=== PATIENT | female | born 1940 | race Two or more races ===

== ENCOUNTER → 2022-10-30 | Outpatient (CLI) | payer OTHER ==
[2022-10-30 07:47] LABS: Basophils # (auto) 0.1 10 ^3/uL (0-0.2); Basophils % (auto) 0.9 % (0.0-2.0); Eosinophils # (auto) 0.3 10 ^3/uL (0-0.8); Eosinophils % (auto) 3.9 % (0.0-7.0); Hemoglobin 13.6 g/dL (12.2-16.2); Lymphocytes # (auto) 1.6 10 ^3/uL (0.4-5.4); Lymphocytes % (auto) 21.9 % (10.0-50.0); Mean Corpuscular Hemoglobin 31.7 pg (28.0-32.0); Mean Corpuscular Hgb Conc. 34.8 g/dL (32.0-36.0); Mean Corpuscular Volume 91.1 fL (80.0-100.0); Monocytes # (auto) 0.5 10 ^3/uL (0-1.3); Monocytes % (auto) 6.7 % (0.0-12.0); Neutrophils # (auto) 4.9 10 ^3/uL (1.6-8.6); Neutrophils % (auto) 66.6 % (37.0-80.0); Nucleated Red Blood Cells % 0.3 %; Red Blood Cells 4.28 10^6/uL (4.0-5.20); Red Cell Distribution Width 12.7 % (11.8-14.3); White Blood Cell 7.4 10^3/uL (4.4-10.8)
[2022-10-30 08:36] LABS: Calcium 9.4 mg/dL (8.5-10.1); Potassium 3.5 mmol/L (3.5-5.1)
[2022-10-30 08:43] LABS: Albumin 3.9 g/dL (3.4-5.0); BUN/Creatinine Ratio 17.3 (10.0-20.0); Bilirubin, Total 0.8 mg/dL (0.2-1.0); Total Protein 7.4 g/dL (6.4-8.2)
[2022-10-30 08:44] LABS: Free T3 3.31 pg/mL (2.3-4.2); Free T4 (Free Thyroxine) 1.2 ng/dL (0.89-1.76)
== END | disposition home or self-care (01) ==
LOC: LAB 07:31
PROVIDERS: ATTEND Internal Medicine
DX: E11.69 Type 2 diabetes mellitus with other specified complication (principal); E04.2 Nontoxic multinodular goiter; E55.9 Vitamin D deficiency, unspecified
CPT/HCPCS: 36415; 80053; 82306; 82465; 83036; 83718; 83721; 84439; 84443; 84478; 84481; 85025

== ENCOUNTER → 2023-02-07 | Outpatient (CLI) | payer OTHER ==
[2023-02-07 08:01] LABS: Basophils # (auto) 0 10 ^3/uL (0-0.2); Basophils % (auto) 0.5 % (0.0-2.0); Eosinophils # (auto) 0.2 10 ^3/uL (0-0.8); Eosinophils % (auto) 2.1 % (0.0-7.0); Hematocrit 36.4 % (36.0-46.0); Hemoglobin 12.7 g/dL (12.2-16.2); Lymphocytes # (auto) 1.9 10 ^3/uL (0.4-5.4); Lymphocytes % (auto) 25.3 % (10.0-50.0); Mean Corpuscular Hemoglobin 31.7 pg (28.0-32.0); Mean Corpuscular Hgb Conc. 34.7 g/dL (32.0-36.0); Mean Corpuscular Volume 91.3 fL (80.0-100.0); Monocytes # (auto) 0.6 10 ^3/uL (0-1.3); Monocytes % (auto) 8.1 % (0.0-12.0); Neutrophils # (auto) 4.9 10 ^3/uL (1.6-8.6); Nucleated Red Blood Cells % 0.1 %; Red Blood Cells 3.99 10^6/uL (4.0-5.20); Red Cell Distribution Width 12.6 % (11.8-14.3); White Blood Cell 7.6 10^3/uL (4.4-10.8)
[2023-02-07 09:01] LABS: Albumin 3.5 g/dL (3.4-5.0); Calcium 8.3 mg/dL (8.5-10.1); Potassium 3.6 mmol/L (3.5-5.1)
[2023-02-07 09:06] LABS: BUN/Creatinine Ratio 10.8 (10.0-20.0); Bilirubin, Total 0.5 mg/dL (0.2-1.0); Total Protein 6.6 g/dL (6.4-8.2)
== END | disposition home or self-care (01) ==
LOC: LAB 07:43
PROVIDERS: ATTEND Internal Medicine
DX: B35.1 Tinea unguium (principal)
CPT/HCPCS: 36415; 80053; 85025

== ENCOUNTER 2023-03-03 10:14 | Inpatient (IN) | payer OTHER ==
[~2023-03-03] VITALS: Ht 154.9 cm; Wt 62.2 kg
[2023-03-03 11:22] LABS: Basophils # (auto) 0.1 10 ^3/uL (0-0.2); Basophils % (auto) 0.6 % (0.0-2.0); Eosinophils # (auto) 0 10 ^3/uL (0-0.8); Hemoglobin 13.2 g/dL (12.2-16.2); Lymphocytes # (auto) 1.1 10 ^3/uL (0.4-5.4); Lymphocytes % (auto) 10.4 % (10.0-50.0); Mean Corpuscular Hgb Conc. 34.8 g/dL (32.0-36.0); Mean Corpuscular Volume 91.8 fL (80.0-100.0); Monocytes # (auto) 0.4 10 ^3/uL (0-1.3); Monocytes % (auto) 3.9 % (0.0-12.0); Neutrophils # (auto) 9.3 10 ^3/uL (1.6-8.6); Neutrophils % (auto) 85.1 % (37.0-80.0); Red Blood Cells 4.13 10^6/uL (4.0-5.20); Red Cell Distribution Width 13.1 % (11.8-14.3); White Blood Cell 10.9 10^3/uL (4.4-10.8)
[2023-03-03 11:34] LABS: Alanine Aminotransferase 29 U/L (7-40); Albumin 4.3 g/dL (3.2-4.8); Alkaline Phosphatase 46 U/L (46-116); Aspartate Aminotransferase 28 U/L (13-40); BUN/Creatinine Ratio 13.4 (10.0-20.0); Blood Urea Nitrogen 45 mg/dL (9-23); Calcium 9.2 mg/dL (8.5-10.1); Chloride 99 mmol/L (98-107); Glucose 196 mg/dL (74-106); Potassium 3.1 mmol/L (3.5-5.1); Sodium 135 mmol/L (136-145)
[2023-03-03 11:35] LABS: Bilirubin, Total 0.6 mg/dL (0.2-1.0); Total Protein 6.8 g/dL (5.7-8.2)
[2023-03-03] MEDS ORDERED: SODIUM CHLORIDE 0.9% 1,000 ML IV ONE (12:00)
[2023-03-03] MEDS ORDERED: KETOROLAC TROMETH 30 MG/ML 1ML VIAL IV ONE (12:00)
[2023-03-03] MEDS ORDERED: METOCLOPRAMIDE HCL 5MG/ml INJ 2ml VIAL IV ONE (12:00)
[2023-03-03 12:20] LABS: Magnesium 2.2 mg/dL (1.6-2.6)
[2023-03-03] MEDS ORDERED: POTASSIUM EFFERVESENT TAB 25 MEQ PO ONE (15:00)
[2023-03-03] MEDS ORDERED: HYDROcodone-ACET 5/325MG TAB PO PRN (16:15)
[2023-03-03] MEDS ORDERED: DOCUSATE SOD 100 MG CAP PO PRN (16:15)
[2023-03-03] MEDS ORDERED: ONDANSETRON HCL 4 MG/2 ML VIAL IV PRN (16:15)
[2023-03-03] MEDS ORDERED: ACETAMINOPHEN 325 MG TAB PO PRN (16:15)
[2023-03-03] MEDS: SODIUM CHLORIDE 0.9% 1,000 ML IV SCH (16:25)
[2023-03-03 17:30] VITALS: PULSE 80; RESP 20; O2SAT 100
[2023-03-03] MEDS ORDERED: LISINOPRIL 10 MG TAB PO ONE (17:45)
[2023-03-03 18:35] LABS: Chloride 100 mmol/L (98-107); Potassium 3.7 mmol/L (3.5-5.1); Sodium 135 mmol/L (136-145)
[2023-03-03 18:36] LABS: Anion Gap 11.5 (5-15); Carbon Dioxide 23.5 mmol/L (20-30)
[2023-03-03 18:37] LABS: Calcium 8.9 mg/dL (8.5-10.1)
[2023-03-03 18:41] LABS: Glucose 139 mg/dL (74-106)
[2023-03-03 18:42] LABS: BUN/Creatinine Ratio 14.4 (10.0-20.0); Blood Urea Nitrogen 46 mg/dL (9-23); Magnesium 2.3 mg/dL (1.6-2.6)
[2023-03-03 19:35] VITALS: PULSE 66; RESP 17; O2SAT 97
[2023-03-03] MEDS ORDERED: hydrALAZINE HCL 20 MG/ML VL IV PRN (21:15)
[2023-03-03 22:00] VITALS: BP 154/69; PULSE 74; RESP 17; TEMP 98; O2SAT 96
[2023-03-03 23:22] VITALS: PULSE 69; RESP 18; O2SAT 98
[2023-03-04] VITALS (7 sets, daily range): BP systolic 138–166; BP diastolic 69–82; PULSE 72–80; RESP 17–19; TEMP 98–99.3; O2SAT 97–99
[2023-03-04 04:34] LABS: Urine Bacteria FEW /hpf (None Seen); Urine Blood Negative /uL (Negative); Urine Clarity Clear (Clear); Urine Color Yellow (Yellow); Urine Mucus FEW (None Seen); Urine Protein, UAD Negative (Negative); Urine Specific Gravity 1.014 (1.001-1.035); Urine Urobilinogen Normal (Negative); Urine WBC 6 /hpf (0 - 5); Urine pH 5.5 (5.0-8.0)
[2023-03-04] MEDS: SODIUM CHLORIDE 0.9% 1,000 ML IV SCH ×3 (06:01→17:18)
[2023-03-04 06:06] LABS: Basophils # (auto) 0.1 10 ^3/uL (0-0.2); Basophils % (auto) 1.1 % (0.0-2.0); Eosinophils # (auto) 0.1 10 ^3/uL (0-0.8); Eosinophils % (auto) 1.1 % (0.0-7.0); Hematocrit 34.2 % (36.0-46.0); Hemoglobin 11.9 g/dL (12.2-16.2); Lymphocytes # (auto) 1.5 10 ^3/uL (0.4-5.4); Lymphocytes % (auto) 15.3 % (10.0-50.0); Mean Corpuscular Hemoglobin 31.6 pg (28.0-32.0); Mean Corpuscular Hgb Conc. 34.7 g/dL (32.0-36.0); Mean Corpuscular Volume 90.9 fL (80.0-100.0); Monocytes # (auto) 0.7 10 ^3/uL (0-1.3); Neutrophils # (auto) 7.2 10 ^3/uL (1.6-8.6); Neutrophils % (auto) 75.5 % (37.0-80.0); Red Blood Cells 3.76 10^6/uL (4.0-5.20); Red Cell Distribution Width 13.4 % (11.8-14.3); White Blood Cell 9.5 10^3/uL (4.4-10.8)
[2023-03-04 06:23] LABS: Alanine Aminotransferase 25 U/L (7-40); Alkaline Phosphatase 40 U/L (46-116); BUN/Creatinine Ratio 13.7 (10.0-20.0); Blood Urea Nitrogen 43 mg/dL (9-23); Calcium 8.6 mg/dL (8.5-10.1); Chloride 104 mmol/L (98-107); Glucose 110 mg/dL (74-106); Potassium 3.5 mmol/L (3.5-5.1); Sodium 138 mmol/L (136-145)
[2023-03-04 06:25] LABS: Albumin 3.8 g/dL (3.2-4.8); Anion Gap 10.4 (5-15); Aspartate Aminotransferase 33 U/L (13-40); Bilirubin, Total 0.6 mg/dL (0.2-1.0); Carbon Dioxide 23.6 mmol/L (20-30); Total Protein 6.2 g/dL (5.7-8.2)
[2023-03-04] MEDS ORDERED: SODIUM CHLORIDE 0.9% 500 ML IV ONE (09:45)
[2023-03-04] MEDS ORDERED: PANTOPRAZOLE 40 MG/10 ML VIAL INJ IV ONE (10:15)
[2023-03-04] MEDS: hydrALAZINE HCL 20 MG/ML VL IV PRN ×2 (10:34→17:24)
[2023-03-04 11:47] LABS: INR 1.13 (0.9-1.15); Prothrombin Time 11.8 sec (9.3-11.8)
[2023-03-04] MEDS ORDERED: MORPHINE SULFATE INJ 2 MG/ml SYRG IV PRN (18:00)
[2023-03-04] MEDS: PANTOPRAZOLE 40 MG/10 ML VIAL INJ IV SCH (21:57)
[2023-03-05] VITALS (10 sets, daily range): BP systolic 133–179; BP diastolic 63–81; PULSE 69–98; RESP 16–18; TEMP 97.5–98.8; O2SAT 96–99
[2023-03-05] MEDS: hydrALAZINE HCL 20 MG/ML VL IV PRN ×2 (03:53→12:22)
[2023-03-05] MEDS: SODIUM CHLORIDE 0.9% 1,000 ML IV SCH ×4 (04:53→23:31)
[2023-03-05 06:54] LABS: Anion Gap 11.2 (5-15); Carbon Dioxide 19.8 mmol/L (20-30); Chloride 110 mmol/L (98-107); Potassium 3.2 mmol/L (3.5-5.1); Sodium 141 mmol/L (136-145)
[2023-03-05 06:55] LABS: Calcium 7.8 mg/dL (8.7-10.4)
[2023-03-05 07:00] LABS: BUN/Creatinine Ratio 13.6 (10.0-20.0); Glucose 105 mg/dL (74-106)
[2023-03-05 07:01] LABS: Magnesium 1.8 mg/dL (1.6-2.6)
[2023-03-05 07:10] LABS: Blood Urea Nitrogen 30 mg/dL (9-23)
[2023-03-05 07:21] LABS: Basophils # (auto) 0.1 10 ^3/uL (0-0.2); Eosinophils # (auto) 0.1 10 ^3/uL (0-0.8); Eosinophils % (auto) 0.8 % (0.0-7.0); Hematocrit 34.1 % (36.0-46.0); Hemoglobin 11.7 g/dL (12.2-16.2); Lymphocytes # (auto) 1.2 10 ^3/uL (0.4-5.4); Lymphocytes % (auto) 11.3 % (10.0-50.0); Mean Corpuscular Hemoglobin 31.6 pg (28.0-32.0); Mean Corpuscular Hgb Conc. 34.3 g/dL (32.0-36.0); Mean Corpuscular Volume 92.1 fL (80.0-100.0); Monocytes # (auto) 0.6 10 ^3/uL (0-1.3); Monocytes % (auto) 5.8 % (0.0-12.0); Neutrophils # (auto) 8.7 10 ^3/uL (1.6-8.6); Neutrophils % (auto) 81.1 % (37.0-80.0); Red Cell Distribution Width 13.4 % (11.8-14.3); White Blood Cell 10.8 10^3/uL (4.4-10.8)
[2023-03-05] MEDS: PANTOPRAZOLE 40 MG/10 ML VIAL INJ IV SCH ×2 (09:12→21:09)
[2023-03-05] MEDS ORDERED: SODIUM CHLORIDE LOCK 10 ML ONE (10:24)
[2023-03-05] MEDS ORDERED: diphenhdrAMINE HCL 50 MG/1 ML VL ONE (10:24)
[2023-03-05] MEDS ORDERED: MIDAZOLAM HCL 2MG/2ML 2ml VIAL (1mg/ml) ONE (10:24)
[2023-03-05] MEDS ORDERED: FLUMAZENIL 0.1 MG/ML INJ 10ML MDV IV ONE (10:24)
[2023-03-05] MEDS ORDERED: LIDOCAINE VISCOUS 2% 15ML UD ONE (10:24)
[2023-03-05] MEDS ORDERED: NALOXONE HCL 0.4 MG/ML VIAL ONE (10:25)
[2023-03-05] MEDS ORDERED: MIDAZOLAM HCL 5 MG/ML-1ML VIAL ONE (10:28)
[2023-03-05] MEDS: fentaNYL CITRATE 100 MCG/2 ML VL ONE ×2 (10:47→10:50)
[2023-03-05] MEDS: POTASSIUM CHL 20MEQ/100ML 100 ML IV SCH ×3 (12:30→16:57)
[2023-03-05] MEDS: SUCRALFATE 1 GM/10 ML ORAL SUSP PO SCH ×2 (17:22→21:09)
[2023-03-06] VITALS (9 sets, daily range): BP systolic 153–184; BP diastolic 68–88; PULSE 73–103; RESP 15–17; TEMP 98.1–98.6; O2SAT 96–97
[2023-03-06] MEDS: hydrALAZINE HCL 20 MG/ML VL IV PRN ×2 (04:11→17:09)
[2023-03-06] MEDS: SUCRALFATE 1 GM/10 ML ORAL SUSP PO SCH ×4 (06:22→21:27)
[2023-03-06] MEDS: SODIUM CHLORIDE 0.9% 1,000 ML IV SCH (06:22)
[2023-03-06] MEDS ORDERED: LOSA50TA46 PO (06:57)
[2023-03-06 07:02] LABS: Calcium 7.9 mg/dL (8.5-10.1); Chloride 112 mmol/L (98-107); Potassium 4.4 mmol/L (3.5-5.1); Sodium 141 mmol/L (136-145)
[2023-03-06 07:08] LABS: BUN/Creatinine Ratio 10.5 (10.0-20.0); Blood Urea Nitrogen 22 mg/dL (9-23); Glucose 120 mg/dL (74-106)
[2023-03-06] MEDS: PANTOPRAZOLE 40 MG/10 ML VIAL INJ IV SCH ×2 (09:39→21:27)
[2023-03-06] MEDS ORDERED: amLODIPine BESYLATE 5 MG TAB PO SCH (10:00)
[2023-03-06] MEDS: SODIUM BICARBONATE 50ML VIAL 50 ML in SOD CHL 0.45% 1,000 ML IV SCH ×2 (15:33→21:27)
[2023-03-07] MEDS: SODIUM BICARBONATE 50ML VIAL 50 ML in SOD CHL 0.45% 1,000 ML IV SCH (04:10)
[2023-03-07 04:16] VITALS: BP 175/74; PULSE 79; RESP 16; TEMP 98.3; O2SAT 98
[2023-03-07] MEDS: hydrALAZINE HCL 20 MG/ML VL IV PRN (05:29)
[2023-03-07] MEDS: SUCRALFATE 1 GM/10 ML ORAL SUSP PO SCH ×2 (06:10→11:21)
[2023-03-07 06:39] VITALS: BP 165/62
[2023-03-07 08:00] VITALS: BP 162/72; PULSE 81; PULSE 85; RESP 17; TEMP 98.5; O2SAT 96
[2023-03-07 08:43] LABS: Protein, Urine 6.2 mg/dL (0.0-11.9)
[2023-03-07 08:45] LABS: Creatinine, Urine 29.27 mg/dL (30.0-125.0); Urine Protein/Creatinine Ratio 0.21
[2023-03-07] MEDS ORDERED: PANT40TA2 PO (09:19)
[2023-03-07] MEDS: PANTOPRAZOLE 40 MG/10 ML VIAL INJ IV SCH (09:55)
[2023-03-07] MEDS ORDERED: amLODIPine BESYLATE 5 MG TAB PO SCH (10:00)
[2023-03-07] MEDS ORDERED: METOPROLOL SUCCINATE XL 50 MG TAB PO SCH (10:00)
[2023-03-07 11:10] LABS: Anion Gap 6.9 (5-15); Carbon Dioxide 23.1 mmol/L (20-30); Chloride 107 mmol/L (98-107); Potassium 3.4 mmol/L (3.5-5.1); Sodium 137 mmol/L (136-145)
[2023-03-07 11:11] LABS: Calcium 7.8 mg/dL (8.5-10.1)
[2023-03-07 11:16] LABS: BUN/Creatinine Ratio 12.3 (10.0-20.0); Blood Urea Nitrogen 17 mg/dL (9-23); Glucose 204 mg/dL (74-106)
[2023-03-07] MEDS ORDERED: SUCR1TAB22 OR (11:37)
[2023-03-07] MEDS ORDERED: AMLO1TAB23 PO (11:37)
[2023-03-07] MEDS ORDERED: METO25TA36 PO ×2 (11:37)
[2023-03-07] MEDS ORDERED: METO-6 PO (11:41)
[2023-03-07] MEDS ORDERED: POTASSIUM CHL 20 Meq TABLET PO ONE (11:45)
[2023-03-07 12:24] VITALS: BP 147/65; PULSE 81; RESP 17; TEMP 98.5
== END 2023-03-07 13:31 | disposition home or self-care (01) | DRG 381 ==
LOC: ER 10:14 → TELE 16:13 → TELE-CENTR 22:50
PROVIDERS: ADMIT Internal Medicine Geriatric Medicine; ATTEND Internal Medicine Geriatric Medicine
PROC: 0DB98ZX Excision of Duodenum, Via Natural or Artificial Opening Endoscopic, Diagnostic (ICD-10-PCS; 2023-03-05)
PROC: 0DB68ZX Excision of Stomach, Via Natural or Artificial Opening Endoscopic, Diagnostic (ICD-10-PCS; 2023-03-05)
PROC: 0DB58ZX Excision of Esophagus, Via Natural or Artificial Opening Endoscopic, Diagnostic (ICD-10-PCS; principal; 2023-03-05 10:41)
DX: K22.10 Ulcer of esophagus without bleeding (principal); E87.1 Hypo-osmolality and hyponatremia; N17.9 Acute kidney failure, unspecified; N39.0 Urinary tract infection, site not specified; E87.20 Acidosis, unspecified; N18.4 Chronic kidney disease, stage 4 (severe); K26.9 Duodenal ulcer, unspecified as acute or chronic, without hemorrhage or perforation; I12.9 Hypertensive chronic kidney disease with stage 1 through stage 4 chronic kidney disease, or unspecified chronic kidney disease; K25.9 Gastric ulcer, unspecified as acute or chronic, without hemorrhage or perforation; K29.70 Gastritis, unspecified, without bleeding; K29.80 Duodenitis without bleeding; K44.9 Diaphragmatic hernia without obstruction or gangrene; K29.90 Gastroduodenitis, unspecified, without bleeding; E86.0 Dehydration; E87.6 Hypokalemia; E07.9 Disorder of thyroid, unspecified; I25.10 Atherosclerotic heart disease of native coronary artery without angina pectoris; K59.00 Constipation, unspecified
CPT/HCPCS: 36415; 71046; 71250; 74176; 76705; 80048; 80053; 81001; 82570; 83036; 83690; 83735; 84156; 84300; 84443; 84484; 85025; 85610; 85730; 93005; C9113; G0378; J1885; J2250; J3480

== ENCOUNTER → 2023-03-20 | Outpatient (CLI) | payer OTHER ==
[~2023-03-20] MED LIST: AMLO1TAB23 PO; METO-6 PO; PANT40TA2 PO; SUCR1TAB22 OR
[2023-03-20 08:14] LABS: Basophils # (auto) 0 10 ^3/uL (0-0.2); Basophils % (auto) 0.4 % (0.0-2.0); Eosinophils # (auto) 0.1 10 ^3/uL (0-0.8); Hematocrit 35.1 % (36.0-46.0); Hemoglobin 12.3 g/dL (12.2-16.2); Lymphocytes # (auto) 1.9 10 ^3/uL (0.4-5.4); Lymphocytes % (auto) 18.4 % (10.0-50.0); Mean Corpuscular Hemoglobin 31.3 pg (28.0-32.0); Mean Corpuscular Hgb Conc. 35.1 g/dL (32.0-36.0); Mean Corpuscular Volume 89.1 fL (80.0-100.0); Monocytes # (auto) 0.5 10 ^3/uL (0-1.3); Neutrophils # (auto) 7.6 10 ^3/uL (1.6-8.6); Neutrophils % (auto) 75.2 % (37.0-80.0); Nucleated Red Blood Cells % 0.2 %; Red Blood Cells 3.94 10^6/uL (4.0-5.20); Red Cell Distribution Width 12.9 % (11.8-14.3); White Blood Cell 10.1 10^3/uL (4.4-10.8)
[2023-03-20 08:21] LABS: Urine Bacteria FEW /hpf (None Seen); Urine Blood Negative /uL (Negative); Urine Clarity Clear (Clear); Urine Color Colorless (Yellow); Urine Protein, UAD Negative (Negative); Urine Specific Gravity 1.004 (1.001-1.035); Urine Urobilinogen Normal (Negative); Urine WBC 1 /hpf (0 - 5)
[2023-03-20 08:54] LABS: Alanine Aminotransferase 29 U/L (7-40); Albumin 4.1 g/dL (3.2-4.8); Alkaline Phosphatase 67 U/L (46-116); Aspartate Aminotransferase 42 U/L (13-40); BUN/Creatinine Ratio 6.2 (10.0-20.0); Bilirubin, Total 0.9 mg/dL (0.2-1.0); Blood Urea Nitrogen 6 mg/dL (9-23); Calcium 8.8 mg/dL (8.5-10.1); Carbon Dioxide 32 mmol/L (20-30); Glucose 170 mg/dL (74-106); Total Protein 6.9 g/dL (5.7-8.2)
[2023-03-20 08:55] LABS: % Iron Saturation 33.2 % (15-50)
[2023-03-20 09:07] LABS: Anion Gap 10 (5-15); Chloride 97 mmol/L (98-107); Sodium 139 mmol/L (136-145)
[2023-03-20 09:33] LABS: Potassium 2.2 mmol/L (3.5-5.1)
== END | disposition home or self-care (01) ==
LOC: LAB 07:45
PROVIDERS: ATTEND Internal Medicine
DX: N18.32 Chronic kidney disease, stage 3b (principal); N39.0 Urinary tract infection, site not specified; K29.90 Gastroduodenitis, unspecified, without bleeding
CPT/HCPCS: 36415; 80053; 81001; 82728; 83540; 83550; 85025; 87086

== ENCOUNTER 2023-03-21 13:48 | Inpatient (IN) | payer OTHER ==
[~2023-03-21] VITALS: Ht 152.4 cm; Wt 50.5 kg
[2023-03-21 14:17] LABS: Basophils # (auto) 0 10 ^3/uL (0-0.2); Basophils % (auto) 0.2 % (0.0-2.0); Eosinophils # (auto) 0.1 10 ^3/uL (0-0.8); Eosinophils % (auto) 0.6 % (0.0-7.0); Hematocrit 31.6 % (36.0-46.0); Hemoglobin 11.1 g/dL (12.2-16.2); Lymphocytes # (auto) 1.8 10 ^3/uL (0.4-5.4); Lymphocytes % (auto) 10.4 % (10.0-50.0); Mean Corpuscular Hemoglobin 30.8 pg (28.0-32.0); Mean Corpuscular Volume 87.9 fL (80.0-100.0); Monocytes % (auto) 5.8 % (0.0-12.0); Neutrophils # (auto) 14.2 10 ^3/uL (1.6-8.6); Red Cell Distribution Width 12.8 % (11.8-14.3); White Blood Cell 17.1 10^3/uL (4.4-10.8)
[2023-03-21 14:51] LABS: Alanine Aminotransferase 30 U/L (7-40); Albumin 4.3 g/dL (3.2-4.8); Alkaline Phosphatase 69 U/L (46-116); Anion Gap 6 (5-15); Aspartate Aminotransferase 38 U/L (13-40); Bilirubin, Total 0.7 mg/dL (0.2-1.0); Blood Urea Nitrogen 6 mg/dL (9-23); Calcium 8.7 mg/dL (8.7-10.4); Carbon Dioxide 33 mmol/L (20-30); Chloride 97 mmol/L (98-107); Glucose 149 mg/dL (74-106); Sodium 136 mmol/L (136-145); Total Protein 6.4 g/dL (5.7-8.2)
[2023-03-21 14:58] LABS: BUN/Creatinine Ratio 6.3 (10.0-20.0)
[2023-03-21 15:28] LABS: Urine Bacteria FEW /hpf (None Seen); Urine Blood Negative /uL (Negative); Urine Clarity Clear (Clear); Urine Color Colorless (Yellow); Urine Mucus FEW (None Seen); Urine Protein, UAD TRACE (Negative); Urine Specific Gravity 1.007 (1.001-1.035); Urine Urobilinogen Normal (Negative); Urine WBC 3 /hpf (0 - 5); Urine pH 6.5 (5.0-8.0)
[2023-03-21 15:30] LABS: Potassium 2.4 mmol/L (3.5-5.1)
[2023-03-21] MEDS ORDERED: cefTRIAXone 1GM/50ML D5W 50 ML IV ONE (17:45)
[2023-03-21] MEDS ORDERED: POTASSIUM EFFERVESENT TAB 25 MEQ PO ONE (18:15)
[2023-03-21 19:38] LABS: Magnesium 1.4 mg/dL (1.6-2.6); Phosphorus 2.8 mg/dL (2.4-5.1)
[2023-03-21 19:53] LABS: Potassium 2.4 mmol/L (3.5-5.1)
[2023-03-21] MEDS ORDERED: SODIUM BICARBONATE 50ML VIAL 150 ML in SOD CHL 0.45% 1,000 ML IV SCH (20:15)
[2023-03-21] MEDS ORDERED: SODIUM BICARBONATE 50ML VIAL 50 ML in SOD CHL 0.45% 1,000 ML IV SCH (20:15)
[2023-03-21] MEDS: POTASSIUM CHL 20MEQ/100ML 100 ML IV SCH ×2 (20:53→23:18)
[2023-03-21] MEDS: SODIUM CHLORIDE 0.9% 1,000 ML IV SCH (20:53)
[2023-03-21] MEDS: PANTOPRAZOLE 40 MG TAB PO SCH (23:24)
[2023-03-21] MEDS: SUCRALFATE 1 GM TAB PO SCH (23:24)
[2023-03-22] VITALS (9 sets, daily range): BP systolic 133–155; BP diastolic 59–72; PULSE 71–84; RESP 14–20; TEMP 98.2–99.6; O2SAT 95–99
[2023-03-22] MEDS: SODIUM CHLORIDE 0.9% 1,000 ML IV SCH (05:01)
[2023-03-22] MEDS: SUCRALFATE 1 GM TAB PO SCH ×4 (07:00→22:19)
[2023-03-22 08:37] LABS: Carbon Dioxide 29 mmol/L (20-30)
[2023-03-22 08:38] LABS: Calcium 8.3 mg/dL (8.5-10.1)
[2023-03-22 08:42] LABS: Glucose 152 mg/dL (74-106)
[2023-03-22 08:43] LABS: LDL Cholesterol 34 mg/dL (< 100); Magnesium 1.3 mg/dL (1.6-2.6); Triglycerides 135 mg/dL (< 150)
[2023-03-22 08:44] LABS: Cholesterol 84 mg/dL (< 200); HDL Cholesterol 31 mg/dL (40-59)
[2023-03-22] MEDS ORDERED: MAGNESIUM SULFATE 1GM/100ML 100 ML IV ONE (08:45)
[2023-03-22 09:04] LABS: BUN/Creatinine Ratio 7.1 (10.0-20.0); Blood Urea Nitrogen < 5 mg/dL (9-23)
[2023-03-22 09:25] LABS: Anion Gap 8 (5-15); Chloride 102 mmol/L (98-107); Sodium 139 mmol/L (136-145)
[2023-03-22] MEDS: PANTOPRAZOLE 40 MG TAB PO SCH ×2 (09:26→22:19)
[2023-03-22] MEDS: METOPROLOL SUCCINATE XL 50 MG TAB PO SCH (09:27)
[2023-03-22] MEDS: cefTRIAXone 1GM/50ML D5W 50 ML IV SCH (09:27)
[2023-03-22 09:43] LABS: Potassium 2.8 mmol/L (3.5-5.1)
[2023-03-22] MEDS ORDERED: ASPirin 81 mg TAB PO SCH (10:00)
[2023-03-22] MEDS ORDERED: POTASSIUM EFFERVESENT TAB 25 MEQ PO ONE (10:30)
[2023-03-22] MEDS: MAGNESIUM SULFATE 1GM/100ML 100 ML IV SCH ×2 (11:35→12:30)
[2023-03-22] MEDS: metroNIDAZOLE 500MG/100ML 100 ML IV SCH ×2 (14:29→22:20)
[2023-03-22] MEDS: VANCOMYCIN HCL 125MG/5ML ORAL SOL PO SCH ×2 (16:58→22:39)
[2023-03-22] MEDS ORDERED: ONDANSETRON HCL 4 MG/2 ML VIAL IV PRN (17:15)
[2023-03-22] MEDS ORDERED: POTASSIUM CHL 20 Meq TABLET PO ONE (21:30)
[2023-03-22] MEDS ORDERED: POTASSIUM CHL 20MEQ/100ML 100 ML IV ONE (21:30)
[2023-03-23] VITALS (7 sets, daily range): BP systolic 119–135; BP diastolic 52–72; PULSE 22–94; RESP 14–20; TEMP 97.8–99.1; O2SAT 95–99
[2023-03-23] MEDS: SOD CHL 0.45% WITH 20MEQ KCL 1,000 ML IV SCH ×3 (02:14→21:31)
[2023-03-23] MEDS: metroNIDAZOLE 500MG/100ML 100 ML IV SCH ×3 (06:29→21:27)
[2023-03-23] MEDS: SUCRALFATE 1 GM TAB PO SCH ×4 (06:29→21:28)
[2023-03-23] MEDS: VANCOMYCIN HCL 125MG/5ML ORAL SOL PO SCH ×4 (06:29→21:28)
[2023-03-23 06:42] LABS: Anion Gap 5 (5-15); Carbon Dioxide 28 mmol/L (20-30); Chloride 99 mmol/L (98-107); Potassium 3.3 mmol/L (3.5-5.1)
[2023-03-23 06:43] LABS: Calcium 7.8 mg/dL (8.7-10.4)
[2023-03-23 06:47] LABS: Glucose 162 mg/dL (74-106)
[2023-03-23 06:48] LABS: Magnesium 1.6 mg/dL (1.6-2.6)
[2023-03-23 06:49] LABS: BUN/Creatinine Ratio 6.4 (10.0-20.0); Blood Urea Nitrogen < 5 mg/dL (9-23); Sodium 132 mmol/L (136-145)
[2023-03-23 07:39] LABS: Basophils # (auto) 0.1 10 ^3/uL (0-0.2); Basophils % (auto) 0.3 % (0.0-2.0); Eosinophils # (auto) 0 10 ^3/uL (0-0.8); Hematocrit 29.8 % (36.0-46.0); Hemoglobin 10.5 g/dL (12.2-16.2); Lymphocytes # (auto) 1.6 10 ^3/uL (0.4-5.4); Lymphocytes % (auto) 6.7 % (10.0-50.0); Mean Corpuscular Hemoglobin 31.3 pg (28.0-32.0); Mean Corpuscular Hgb Conc. 35.3 g/dL (32.0-36.0); Mean Corpuscular Volume 88.6 fL (80.0-100.0); Monocytes # (auto) 1.5 10 ^3/uL (0-1.3); Monocytes % (auto) 6.2 % (0.0-12.0); Neutrophils # (auto) 20.4 10 ^3/uL (1.6-8.6); Neutrophils % (auto) 86.8 % (37.0-80.0); Nucleated Red Blood Cells % 0.1 %; Red Blood Cells 3.36 10^6/uL (4.0-5.20); Red Cell Distribution Width 13.2 % (11.8-14.3); White Blood Cell 23.5 10^3/uL (4.4-10.8)
[2023-03-23 08:05] LABS: RPR Non Reactive (Non Reactive)
[2023-03-23] MEDS: PANTOPRAZOLE 40 MG TAB PO SCH ×2 (09:20→21:28)
[2023-03-23] MEDS: cefTRIAXone 1GM/50ML D5W 50 ML IV SCH (09:20)
[2023-03-23] MEDS: METOPROLOL SUCCINATE XL 50 MG TAB PO SCH (09:21)
[2023-03-23] MEDS ORDERED: MAGNESIUM OXIDE 400 MG TAB PO ONE (15:45)
[2023-03-24] VITALS (7 sets, daily range): BP systolic 114–145; BP diastolic 58–87; PULSE 71–89; RESP 14–18; TEMP 97.8–98.2; O2SAT 97–99
[2023-03-24] MEDS: VANCOMYCIN HCL 125MG/5ML ORAL SOL PO SCH ×4 (06:10→21:27)
[2023-03-24] MEDS: SUCRALFATE 1 GM TAB PO SCH ×4 (06:11→21:27)
[2023-03-24] MEDS: metroNIDAZOLE 500MG/100ML 100 ML IV SCH ×3 (06:14→21:26)
[2023-03-24 06:33] LABS: Basophils # (auto) 0 10 ^3/uL (0-0.2); Basophils % (auto) 0.4 % (0.0-2.0); Eosinophils # (auto) 0.1 10 ^3/uL (0-0.8); Eosinophils % (auto) 1.2 % (0.0-7.0); Hematocrit 28.1 % (36.0-46.0); Hemoglobin 9.8 g/dL (12.2-16.2); Lymphocytes # (auto) 1.5 10 ^3/uL (0.4-5.4); Lymphocytes % (auto) 12.9 % (10.0-50.0); Mean Corpuscular Volume 88.8 fL (80.0-100.0); Monocytes # (auto) 0.9 10 ^3/uL (0-1.3); Monocytes % (auto) 7.7 % (0.0-12.0); Neutrophils # (auto) 8.9 10 ^3/uL (1.6-8.6); Neutrophils % (auto) 77.8 % (37.0-80.0); Nucleated Red Blood Cells % 0.3 %; Red Blood Cells 3.17 10^6/uL (4.0-5.20); Red Cell Distribution Width 13.2 % (11.8-14.3); White Blood Cell 11.4 10^3/uL (4.4-10.8)
[2023-03-24 06:48] LABS: Alanine Aminotransferase 15 U/L (7-40); Albumin 3.1 g/dL (3.2-4.8); Alkaline Phosphatase 61 U/L (46-116); Anion Gap 4 (5-15); Aspartate Aminotransferase 15 U/L (13-40); Carbon Dioxide 27 mmol/L (20-30); Chloride 103 mmol/L (98-107); Glucose 154 mg/dL (74-106); Potassium 3.1 mmol/L (3.5-5.1); Sodium 134 mmol/L (136-145)
[2023-03-24 06:49] LABS: Bilirubin, Total 0.5 mg/dL (0.2-1.0); Total Protein 5.4 g/dL (5.7-8.2)
[2023-03-24 06:55] LABS: BUN/Creatinine Ratio 6.8 (10.0-20.0); Blood Urea Nitrogen < 5 mg/dL (9-23)
[2023-03-24] MEDS: cefTRIAXone 1GM/50ML D5W 50 ML IV SCH (09:08)
[2023-03-24] MEDS: PANTOPRAZOLE 40 MG TAB PO SCH ×2 (09:15→21:27)
[2023-03-24] MEDS: METOPROLOL SUCCINATE XL 50 MG TAB PO SCH (09:15)
[2023-03-24] MEDS ORDERED: POTASSIUM EFFERVESENT TAB 25 MEQ GT ONE (11:00)
[2023-03-24] MEDS ORDERED: POTASSIUM EFFERVESENT TAB 25 MEQ PO ONE (11:15)
[2023-03-24] MEDS: SOD CHL 0.45% WITH 20MEQ KCL 1,000 ML IV SCH (15:11)
[2023-03-25] MEDS: SOD CHL 0.45% WITH 20MEQ KCL 1,000 ML IV SCH ×2 (00:01→16:01)
[2023-03-25 05:00] VITALS: BP 150/63; PULSE 76; RESP 16; TEMP 98.3; O2SAT 98
[2023-03-25] MEDS: metroNIDAZOLE 500MG/100ML 100 ML IV SCH ×3 (05:28→21:14)
[2023-03-25] MEDS: VANCOMYCIN HCL 125MG/5ML ORAL SOL PO SCH ×4 (05:29→22:29)
[2023-03-25] MEDS: SUCRALFATE 1 GM TAB PO SCH ×4 (06:26→21:14)
[2023-03-25 08:00] VITALS: PULSE 76
[2023-03-25] MEDS: cefTRIAXone 1GM/50ML D5W 50 ML IV SCH (08:50)
[2023-03-25] MEDS: PANTOPRAZOLE 40 MG TAB PO SCH ×2 (08:53→21:14)
[2023-03-25] MEDS: METOPROLOL SUCCINATE XL 50 MG TAB PO SCH (08:53)
[2023-03-25 08:59] VITALS: BP 150/73; PULSE 91; RESP 22; TEMP 97.6; O2SAT 100
[2023-03-25 13:00] VITALS: BP_SYST 148; BP_SYST 165; BP_DIAS 73; BP_DIAS 74; PULSE 75; PULSE 77; RESP 14; RESP 16; TEMP 97.8; TEMP 98; O2SAT 100; O2SAT 98
[2023-03-25] MEDS ORDERED: amLODIPine BESYLATE 5 MG TAB PO ONE (15:30)
[2023-03-25 20:00] VITALS: PULSE 70; PULSE 81; RESP 18; O2SAT 97
[2023-03-25 22:02] VITALS: BP 126/56; PULSE 69; RESP 18; TEMP 98.2; O2SAT 97
[2023-03-26] MEDS: SOD CHL 0.45% WITH 20MEQ KCL 1,000 ML IV SCH (04:18)
[2023-03-26 05:00] VITALS: BP 146/69; PULSE 72; RESP 17; TEMP 98.3; O2SAT 98
[2023-03-26] MEDS: SUCRALFATE 1 GM TAB PO SCH ×2 (05:19→11:36)
[2023-03-26] MEDS: VANCOMYCIN HCL 125MG/5ML ORAL SOL PO SCH ×2 (05:19→11:36)
[2023-03-26] MEDS: metroNIDAZOLE 500MG/100ML 100 ML IV SCH ×2 (05:19→14:00)
[2023-03-26 06:37] LABS: Alanine Aminotransferase 21 U/L (7-40); Alkaline Phosphatase 59 U/L (46-116); Anion Gap 5 (5-15); Calcium 8.4 mg/dL (8.7-10.4); Carbon Dioxide 26 mmol/L (20-30); Chloride 104 mmol/L (98-107); Glucose 143 mg/dL (74-106); Magnesium 1.2 mg/dL (1.6-2.6); Potassium 3.9 mmol/L (3.5-5.1); Sodium 135 mmol/L (136-145)
[2023-03-26 06:38] LABS: Albumin 3.2 g/dL (3.2-4.8); Aspartate Aminotransferase 39 U/L (13-40)
[2023-03-26 06:39] LABS: Bilirubin, Total 0.4 mg/dL (0.2-1.0); Total Protein 5.6 g/dL (5.7-8.2)
[2023-03-26 06:41] LABS: BUN/Creatinine Ratio 6.3 (10.0-20.0); Blood Urea Nitrogen < 5 mg/dL (9-23)
[2023-03-26 06:44] LABS: Basophils # (auto) 0.1 10 ^3/uL (0-0.2); Basophils % (auto) 0.8 % (0.0-2.0); Eosinophils # (auto) 0.2 10 ^3/uL (0-0.8); Eosinophils % (auto) 2.7 % (0.0-7.0); Hematocrit 29.3 % (36.0-46.0); Hemoglobin 10.3 g/dL (12.2-16.2); Lymphocytes # (auto) 1.4 10 ^3/uL (0.4-5.4); Lymphocytes % (auto) 17.6 % (10.0-50.0); Mean Corpuscular Hemoglobin 31.4 pg (28.0-32.0); Mean Corpuscular Hgb Conc. 35.3 g/dL (32.0-36.0); Monocytes # (auto) 0.7 10 ^3/uL (0-1.3); Monocytes % (auto) 9.3 % (0.0-12.0); Neutrophils # (auto) 5.4 10 ^3/uL (1.6-8.6); Neutrophils % (auto) 69.6 % (37.0-80.0); Red Blood Cells 3.29 10^6/uL (4.0-5.20); White Blood Cell 7.8 10^3/uL (4.4-10.8)
[2023-03-26 08:00] VITALS: PULSE 75
[2023-03-26] MEDS: cefTRIAXone 1GM/50ML D5W 50 ML IV SCH (08:42)
[2023-03-26] MEDS: PANTOPRAZOLE 40 MG TAB PO SCH (08:42)
[2023-03-26] MEDS: METOPROLOL SUCCINATE XL 50 MG TAB PO SCH (08:43)
[2023-03-26 09:04] VITALS: BP 139/80; PULSE 85; RESP 14; TEMP 98.1; O2SAT 97
[2023-03-26] MEDS ORDERED: amLODIPine BESYLATE 5 MG TAB PO SCH (10:00)
[2023-03-26] MEDS ORDERED: VANC125PO PO (12:31)
[2023-03-26 13:00] VITALS: BP 139/72; PULSE 76; RESP 14; TEMP 97.5; O2SAT 100
== END 2023-03-26 14:51 | disposition home or self-care (01) | DRG 871 ==
LOC: ER 13:48 → TELE 18:22 → TELE-WESTW 03-22 04:44
PROVIDERS: ADMIT Nurse Practitioner Family; ATTEND Nurse Practitioner Acute Care
DX: A41.9 Sepsis, unspecified organism (principal); N17.0 Acute kidney failure with tubular necrosis; N30.00 Acute cystitis without hematuria; A04.72 Enterocolitis due to Clostridium difficile, not specified as recurrent; I50.32 Chronic diastolic (congestive) heart failure; E87.6 Hypokalemia; D64.9 Anemia, unspecified; E83.42 Hypomagnesemia; E86.0 Dehydration; I11.0 Hypertensive heart disease with heart failure; E03.9 Hypothyroidism, unspecified; K21.00 Gastro-esophageal reflux disease with esophagitis, without bleeding; K26.9 Duodenal ulcer, unspecified as acute or chronic, without hemorrhage or perforation
CPT/HCPCS: 36415; 70450; 70486; 71045; 74176; 80048; 80053; 80061; 81001; 82728; 83540; 83550; 83605; 83735; 83880; 84100; 84132; 84439; 84443; 84484; 85025; 86592; 87045; 87081; 87086; 87427; 87493; 92610; 93005; 93306; 93886; 97110; 97116; 97163; 97530; G0378; J0696; J2405; J3480; J3490

== ENCOUNTER → 2023-03-21 | Outpatient (CLI) | payer OTHER | END | disposition home or self-care (01) | LOC: LAB 11:04 | PROVIDERS: ATTEND Internal Medicine | DX: E78.5 Hyperlipidemia, unspecified (principal) | CPT/HCPCS: 36415; 84132 ==

== ENCOUNTER → 2023-05-10 | Outpatient (CLI) | payer OTHER ==
[~2023-05-10] MED LIST changes: -PANT40TA2 PO; -SUCR1TAB22 OR; +VANC125PO PO
[2023-05-10 09:27] LABS: Basophils # (auto) 0.1 10 ^3/uL (0-0.2); Basophils % (auto) 0.5 % (0.0-2.0); Eosinophils # (auto) 0.1 10 ^3/uL (0-0.8); Hematocrit 37.8 % (36.0-46.0); Lymphocytes # (auto) 2.4 10 ^3/uL (0.4-5.4); Lymphocytes % (auto) 18.8 % (10.0-50.0); Mean Corpuscular Hemoglobin 31.5 pg (28.0-32.0); Mean Corpuscular Hgb Conc. 34.5 g/dL (32.0-36.0); Mean Corpuscular Volume 91.4 fL (80.0-100.0); Monocytes # (auto) 0.7 10 ^3/uL (0-1.3); Monocytes % (auto) 5.2 % (0.0-12.0); Neutrophils # (auto) 9.3 10 ^3/uL (1.6-8.6); Neutrophils % (auto) 74.5 % (37.0-80.0); Red Blood Cells 4.13 10^6/uL (4.0-5.20); Red Cell Distribution Width 13.8 % (11.8-14.3); White Blood Cell 12.5 10^3/uL (4.4-10.8)
[2023-05-10 10:04] LABS: % Iron Saturation 36.3 % (15-50)
[2023-05-10 10:05] LABS: Alanine Aminotransferase 23 U/L (7-40); Alkaline Phosphatase 70 U/L (46-116); Anion Gap 6 (5-15); BUN/Creatinine Ratio 11.8 (10.0-20.0); Blood Urea Nitrogen 8 mg/dL (9-23); Calcium 9.3 mg/dL (8.5-10.1); Carbon Dioxide 31 mmol/L (20-30); Chloride 103 mmol/L (98-107); Glucose 166 mg/dL (74-106); Sodium 140 mmol/L (136-145)
[2023-05-10 10:06] LABS: Albumin 4.3 g/dL (3.2-4.8); Aspartate Aminotransferase 47 U/L (13-40)
[2023-05-10 10:07] LABS: Bilirubin, Total 0.6 mg/dL (0.2-1.0); Total Protein 6.9 g/dL (5.7-8.2)
[2023-05-10 11:18] LABS: Folate (Folic Acid) 8.53 ng/mL (>5.38)
[2023-05-10 11:19] LABS: Ferritin 122.8 ng/mL (10-291)
[2023-05-10 14:31] LABS: Magnesium 1.9 mg/dL (1.6-2.6); Potassium 2.9 mmol/L (3.5-5.1)
== END | disposition home or self-care (01) ==
LOC: LAB 08:59
PROVIDERS: ATTEND Internal Medicine
DX: E87.6 Hypokalemia (principal); E83.42 Hypomagnesemia; D64.9 Anemia, unspecified
CPT/HCPCS: 36415; 80053; 82607; 82728; 82746; 83540; 83550; 83735; 85025

== ENCOUNTER → 2023-05-16 | Outpatient (CLI) | payer OTHER ==
[2023-05-16 08:15] LABS: Alanine Aminotransferase 25 U/L (7-40); Alkaline Phosphatase 66 U/L (46-116); Anion Gap 6 (5-15); Aspartate Aminotransferase 40 U/L (13-40); BUN/Creatinine Ratio 9.9 (10.0-20.0); Bilirubin, Total 0.7 mg/dL (0.2-1.0); Blood Urea Nitrogen 7 mg/dL (9-23); Calcium 8.8 mg/dL (8.5-10.1); Carbon Dioxide 28 mmol/L (20-30); Chloride 104 mmol/L (98-107); Glucose 189 mg/dL (74-106); Potassium 3.2 mmol/L (3.5-5.1); Sodium 138 mmol/L (136-145); Total Protein 6.5 g/dL (5.7-8.2)
== END | disposition home or self-care (01) ==
LOC: LAB 07:21
PROVIDERS: ATTEND Internal Medicine
DX: E11.69 Type 2 diabetes mellitus with other specified complication (principal); E87.6 Hypokalemia
CPT/HCPCS: 36415; 80053

== ENCOUNTER → 2023-05-21 | Outpatient (CLI) | payer OTHER ==
[2023-05-21 12:15] LABS: Alanine Aminotransferase 23 U/L (7-40); Albumin 4.2 g/dL (3.2-4.8); Alkaline Phosphatase 114 U/L (46-116); Anion Gap 5 (5-15); Aspartate Aminotransferase 44 U/L (13-40); Bilirubin, Total 0.6 mg/dL (0.2-1.0); Calcium 9.5 mg/dL (8.5-10.1); Carbon Dioxide 28 mmol/L (20-30); Chloride 104 mmol/L (98-107); Glucose 134 mg/dL (74-106); Potassium 3.3 mmol/L (3.5-5.1); Sodium 137 mmol/L (136-145); Total Protein 6.8 g/dL (5.7-8.2)
[2023-05-21 12:20] LABS: BUN/Creatinine Ratio 7.5 (10.0-20.0); Blood Urea Nitrogen < 5 mg/dL (9-23)
== END | disposition home or self-care (01) ==
LOC: LAB 11:17
PROVIDERS: ATTEND Internal Medicine
DX: E87.6 Hypokalemia (principal)
CPT/HCPCS: 36415; 80053

== ENCOUNTER → 2023-05-29 | Outpatient (CLI) | payer OTHER ==
[2023-05-29 10:40] LABS: Alanine Aminotransferase 25 U/L (7-40); Albumin 4.2 g/dL (3.2-4.8); Alkaline Phosphatase 63 U/L (46-116); Anion Gap 6 (5-15); Aspartate Aminotransferase 40 U/L (13-40); BUN/Creatinine Ratio 15.3 (10.0-20.0); Bilirubin, Total 0.4 mg/dL (0.2-1.0); Blood Urea Nitrogen 13 mg/dL (9-23); Calcium 9.4 mg/dL (8.5-10.1); Carbon Dioxide 26 mmol/L (20-30); Chloride 103 mmol/L (98-107); Glucose 160 mg/dL (74-106); Potassium 4.3 mmol/L (3.5-5.1); Sodium 135 mmol/L (136-145)
[2023-05-29 10:41] LABS: Total Protein 6.8 g/dL (5.7-8.2)
== END | disposition home or self-care (01) ==
LOC: LAB 09:54
PROVIDERS: ATTEND Internal Medicine
DX: E87.6 Hypokalemia (principal)
CPT/HCPCS: 36415; 80053

== ENCOUNTER → 2023-06-19 | Outpatient (CLI) | payer OTHER | END | disposition home or self-care (01) | LOC: LAB 10:16 | PROVIDERS: ATTEND Internal Medicine | DX: E87.6 Hypokalemia (principal) | CPT/HCPCS: 36415; 84132 ==

== ENCOUNTER → 2023-07-31 | Outpatient (CLI) | payer OTHER ==
[2023-07-31 10:26] LABS: Anion Gap 6 (5-15); Carbon Dioxide 27 mmol/L (20-30); Chloride 106 mmol/L (98-107); Potassium 4.6 mmol/L (3.5-5.1); Sodium 139 mmol/L (136-145)
[2023-07-31 10:27] LABS: Calcium 9.8 mg/dL (8.5-10.1)
[2023-07-31 10:32] LABS: BUN/Creatinine Ratio 13.5 (10.0-20.0); Blood Urea Nitrogen 10 mg/dL (9-23); Glucose 155 mg/dL (74-106); Triglycerides 92 mg/dL (< 150)
[2023-07-31 10:33] LABS: LDL Cholesterol 61 mg/dL (< 100)
[2023-07-31 10:34] LABS: Cholesterol 128 mg/dL (< 200); HDL Cholesterol 57 mg/dL (40-59)
== END | disposition home or self-care (01) ==
LOC: LAB 09:34
PROVIDERS: ATTEND Internal Medicine
DX: E11.69 Type 2 diabetes mellitus with other specified complication (principal); E78.5 Hyperlipidemia, unspecified
CPT/HCPCS: 36415; 80048; 80061; 82043; 82570; 83036

== ENCOUNTER → 2023-09-18 | Outpatient (CLI) | payer OTHER ==
[2023-09-18 14:31] LABS: Alanine Aminotransferase 25 U/L (7-40); Albumin 4.4 g/dL (3.2-4.8); Alkaline Phosphatase 76 U/L (46-116); Anion Gap 9 (5-15); Aspartate Aminotransferase 33 U/L (13-40); BUN/Creatinine Ratio 10.6 (10.0-20.0); Bilirubin, Total 0.5 mg/dL (0.2-1.0); Blood Urea Nitrogen 9 mg/dL (9-23); Calcium 9.7 mg/dL (8.7-10.4); Carbon Dioxide 26 mmol/L (20-30); Chloride 103 mmol/L (98-107); Glucose 256 mg/dL (74-106); Potassium 3.6 mmol/L (3.5-5.1); Sodium 138 mmol/L (136-145); Total Protein 7.2 g/dL (5.7-8.2); Uric Acid 3.5 mg/dL (3.1-7.8)
== END | disposition home or self-care (01) ==
LOC: LAB 13:45
PROVIDERS: ATTEND Internal Medicine
DX: L65.9 Nonscarring hair loss, unspecified (principal); M17.9 Osteoarthritis of knee, unspecified; E87.6 Hypokalemia
CPT/HCPCS: 36415; 80053; 84436; 84443; 84480; 84550

== ENCOUNTER → 2024-02-04 | Outpatient (CLI) | payer OTHER ==
[2024-02-04 08:29] LABS: Alanine Aminotransferase 26 U/L (7-40); Alkaline Phosphatase 83 U/L (46-116); Anion Gap 10 (5-15); BUN/Creatinine Ratio 14.9 (10.0-20.0); Blood Urea Nitrogen 11 mg/dL (9-23); Calcium 9.8 mg/dL (8.7-10.4); Carbon Dioxide 26 mmol/L (20-30); Chloride 105 mmol/L (98-107); Glucose 159 mg/dL (74-106); LDL Cholesterol 57 mg/dL (< 100); Potassium 3.5 mmol/L (3.5-5.1); Sodium 141 mmol/L (136-145); Triglycerides 123 mg/dL (< 150)
[2024-02-04 08:30] LABS: Albumin 4.4 g/dL (3.2-4.8); Aspartate Aminotransferase 25 U/L (13-40); Bilirubin, Total 0.7 mg/dL (0.2-1.0); Cholesterol 119 mg/dL (< 200); Creatine Kinase IFCC 44 U/L (34-145); HDL Cholesterol 46 mg/dL (40-59); Total Protein 6.8 g/dL (5.7-8.2)
[2024-02-04 10:52] LABS: Uric Acid 4.1 mg/dL (3.1-7.8)
== END | disposition home or self-care (01) ==
LOC: LAB 07:18
PROVIDERS: ATTEND Internal Medicine
DX: E11.69 Type 2 diabetes mellitus with other specified complication (principal); E87.6 Hypokalemia; M17.9 Osteoarthritis of knee, unspecified; L65.9 Nonscarring hair loss, unspecified; Z79.899 Other long term (current) drug therapy
CPT/HCPCS: 36415; 80053; 80061; 82043; 82306; 82550; 83036; 84436; 84443; 84480; 84550

== ENCOUNTER 2024-05-04 16:29 | Emergency (ER) | payer OTHER ==
[~2024-05-04] VITALS: Ht 152.4 cm; Wt 53.9 kg
[2024-05-04 16:45] VITALS: TEMP 98.4
[2024-05-04 16:47] VITALS: BP 15/73; PULSE 80; RESP 18; O2SAT 98
== END 2024-05-04 17:58 | disposition home or self-care (01) ==
LOC: ER 16:29
DX: S00.80XA Unspecified superficial injury of other part of head, initial encounter (principal); I10 Essential (primary) hypertension; Z79.899 Other long term (current) drug therapy; W01.0XXA Fall on same level from slipping, tripping and stumbling without subsequent striking against object, initial encounter; Y93.89 Activity, other specified; Y92.89 Other specified places as the place of occurrence of the external cause; Y99.8 Other external cause status
CPT/HCPCS: 70486

== ENCOUNTER → 2024-09-04 | Outpatient (CLI) | payer OTHER ==
[2024-09-04 11:03] LABS: Albumin 4.8 g/dL (3.2-4.8); Alkaline Phosphatase 81 U/L (46-116); Anion Gap 8 (5-15); Bilirubin, Total 0.7 mg/dL (0.2-1.0); Blood Urea Nitrogen 16 mg/dL (9-23); Calcium 9.9 mg/dL (8.7-10.4); Carbon Dioxide 27 mmol/L (20-31); Chloride 107 mmol/L (98-107); Cholesterol 120 mg/dL (< 200); HDL Cholesterol 51 mg/dL (40-59); LDL Cholesterol 55 mg/dL (< 100); Potassium 3.9 mmol/L (3.5-5.1); Sodium 142 mmol/L (136-145); Total Protein 7.5 g/dL (5.7-8.2); Triglycerides 118 mg/dL (< 150)
[2024-09-04 11:11] LABS: Alanine Aminotransferase 62 U/L (7-40); Aspartate Aminotransferase 88 U/L (13-40); Glucose 176 mg/dL (74-106)
[2024-09-04 11:30] LABS: Creatinine, Urine 218.81 mg/dL (30.0-125.0)
== END | disposition home or self-care (01) ==
LOC: LAB 10:11
PROVIDERS: ATTEND Internal Medicine
DX: E11.69 Type 2 diabetes mellitus with other specified complication (principal); E78.5 Hyperlipidemia, unspecified
CPT/HCPCS: 36415; 80053; 80061; 82043; 82570; 83036

== ENCOUNTER → 2025-01-01 | Outpatient (CLI) | payer OTHER ==
[~2025-01-01] MED LIST changes: +ACET1CAP14 PO
[2025-01-01 07:52] LABS: Alanine Aminotransferase 30 U/L (7-40); Albumin 4.3 g/dL (3.2-4.8); Alkaline Phosphatase 66 U/L (46-116); Anion Gap 9 (5-15); BUN/Creatinine Ratio 15.0 (10.0-20.0); Bilirubin, Total 0.8 mg/dL (0.2-1.0); Blood Urea Nitrogen 12 mg/dL (9-23); Calcium 9.6 mg/dL (8.7-10.4); Carbon Dioxide 26 mmol/L (20-31); Potassium 3.9 mmol/L (3.5-5.1); Sodium 143 mmol/L (136-145); Total Protein 6.5 g/dL (5.7-8.2)
[2025-01-01 08:04] LABS: Chloride 108 mmol/L (98-107); Glucose 157 mg/dL (74-106)
[2025-01-01 08:21] LABS: Urine Protein, UAD TRACE (Negative)
== END | disposition home or self-care (01) ==
LOC: LAB 06:55
PROVIDERS: ATTEND Internal Medicine
DX: N39.0 Urinary tract infection, site not specified (principal); E11.65 Type 2 diabetes mellitus with hyperglycemia
CPT/HCPCS: 36415; 80053; 81001; 83036; 87086

== ENCOUNTER 2025-01-02 18:30 | Emergency (ER) | payer OTHER ==
[~2025-01-02] VITALS: Ht 154.9 cm; Wt 52.9 kg
[~2025-01-02 18:30] MED LIST changes: -ACET1CAP14 PO
--- NOTE | 2025-01-02 19:41 | DVH ---
Procedure: CT MAXILLOFACIAL WITHOUT Study Date and Requested Time: 2024 06:52 PM History: Fall/facial trauma Comparison: CT MAXILLOFACIAL WITHOUT on DOS: 05/04/24, CT MAXILLOFACIAL WITHOUT on DOS: 03/21/23 Dose: CTDI: 64.34 mGy DLP: 1214.1 mGycm Technique: Multiplanar images obtained through the face without intravenous contrast. Findings: No evidence of acute fracture . Moderate degenerative changes of bilateral TMJs. Minimal mucoperiost eal thickening of the ethmoid cells and left maxillary sinus. Bilateral lens replacement. Otherwise orbits and globes unremarkable. Mild bilateral supraorbital soft tissue edema / hematoma. Minimal rightward deviation of the nasal septum. No nasal masses are visualized. Minimal polypoid muc osal thickening of the nasal cavity. The nasopharynx, oropharynx and partially visualized hypopharynx unremarkable. Benign-appearing lytic lesion of the dens. Calcification of the dense ligaments. The partially visual ized cervical spine demonstrates no acute fractures or spondylolisthesis. Enlarged heterogeneous partially visualized. Artifact from dental hardware limits evaluation of the adjacent structures. Impression: Bilateral supraorbital soft tissue edema/ hematoma. No evidence of acute traumatic fractures.
--- NOTE | 2025-01-02 19:47 | ED.PDOC ---
Ngozi. trauma (HPI) HPI Comments This is a 84 year old female presents to the ED with chief complaint of facial injury s/p fall. Patient reports that she had accidentally mechanical trip and fall, falling onto the right side of her face an hour ago. Patient relays that she now has some bruising to the right side of her face. Patient denies any LOC, dizziness, N/V, or headache. Patient arrives with some scant crusted blood on her lip due to some oral bleeding earlier. Chief Complaint: Fall Injury Time Seen by MD: 19:44 Primary Care Provider: KIRK Reviewed notes: Nurses Notes, Medications, Allergies Allergies: Coded Allergies: NO KNOWN ALLERGIES (Unverified , 07/29/20) Home Meds Active Scripts Vancomycin Hcl (Vancomycin Po) 125 Mg So, 125 MG PO QID for 7 Days, #28 DOSE Prov:YASMINE COHEN NP 03/26/23 Metoprolol Succinate (Toprol Xl) 50 Mg Tab, 1 TAB PO DAILY, #30 TAB 5 Refills Prov:RICHA LOZA MD 03/07/23 Amlodipine Besylate (Amlodipine Besylate) 10 Mg Tab, 1 TAB PO DAILY, #30 TAB 5 Refills Prov:RICHA LOZA MD 03/07/23 Information Source: Patient Mode of Arrival: Ambulatory Severity: Moderate Timing: Hours Duration: Since onset Prehospital treatment: None Location: Face Location of laceration: None Mechanism: Fall Past Medical History PAST MEDICAL HISTORY: HTN, UTI'S Surgical History: Tubal Ligation 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 Family History Family History: Reviewed,noncontributory to illness Social History Smoker: Non-Smoker Alcohol: Denies ETOH Use Drugs: Denies Drug Use Lives In: Home Constitutional: denies: chills, diaphoresis, fatigue, fever, malaise, sweats, weakness, others EENTM: denies: blurred vision, double vision, ear bleeding, ear discharge, ear drainage, ear pain, ear ringing, eye pain, eye redness, hearing loss, mouth pain, mouth swelling, nasal discharge, nose bleeding, nose congestion, nose pain, photophobia, tearing, throat pain, throat swelling, voice changes, others Respiratory: denies: cough, hemoptysis, orthopnea, SOB at rest, shortness of breath, SOB with excertion, stridor, wheezing, others Cardiovascular: denies: chest pain, dizzy spells, diaphoresis, Dyspnea on exertion, edema, irregular heart beat, left arm pain, lightheadedness, palpitations, PND, syncope, others Gastrointestinal: denies: abdomen distended, abdominal pain, blood streaked bowels, constipated, diarrhea, dysphagia, difficulty swallowing, hematemesis, melena, nausea, poor appetite, poor fluid intake, rectal bleeding, rectal pain, vomiting, others Genitourinary: denies: abnormal vagina bleeding, burning, dyspareunia, dysuria, flank pain, frequency, hematuria, incontinence, pain, , vagina discharge, urgency, others Neurological: denies: dizziness, fainting, headache, left sided numbness, left sided weakness, numbness, paresthesia, pre-existing deficit, right sided numbness, right sided weakness, seizure, speech problems, tingling, tremors, weakness, others Musculoskeletal: reports: others (Face injury); denies: back pain, gout, joint pain, joint swelling, muscle pain, muscle stiffness, neck pain Integumetry: denies: bruises, change in color, change in hair/nails, dryness, laceration, lesions, lumps, rash, wounds, others Allergic/Immunocompromised: denies: Difficulty Healing, Frequent Infections, Hives, Itching, others Hematologic/Lymphatic: denies: anemia, blood clots, easy bleeding, easy bruising, swollen glands, others Endocrine: denies: excessive hunger, excessive sweating, excessive thirst, excessive urination, flushing, intolerance to cold, intolerance to heat, unexplained weight gain, unexplained weight loss, others Psychiatric: denies: anxiety, bipolar disorder, depression, hopeless, panic disorder, schizophrenia, sleepless, suicidal, others All Other Systems: Reviewed and Negative Physical Exam General Appearance: Mild Distress (Patient has a moderate distress due to facial injury concerns, but patient declined the need for any pain medication.), Normal HEENT: Head (Patient has a small resolving hematoma to the lateral aspect of the right eyebrow region. No laceration noted. Patient had some crusted blood on the lips from oral trauma, but unable to appreciate any tooth fractures or source of the bleeding concern.), Normal ENT Inspection, Pharynx Normal, TMs Normal Neck: Full Range of Motion, Non-Tender, Normal, Normal Inspection, Other (Unremarkable anterior and posterior neck evaluation.) Respiratory: Chest Non-Tender, Lungs Clear, No Accessory Muscle Use, No Respiratory Distress, Normal Breath Sounds Cardiovascular: No Edema, No JVD, No Murmur, No Gallop, Normal Peripheral Pulses, Regular Rate/Rhythm Breast Exam: Deferred Gastrointestinal: No Organomegaly, Non Tender, No Pulsatile Mass, Normal Bowel Sounds, Soft Genitalia: Deferred Pelvic: Deferred Rectal: Deferred Extremities: No calf tenderness, Normal capillary refill, Normal inspection, Normal range of motion, Non-tender, No pedal edema Neurologic: Alert, No Motor Deficits, Normal Affect, Normal Mood, No Sensory Deficits Cerebellar Function: Normal Reflexes: Normal Skin: Dry, Normal Color, Warm Lymphatic: No Adenopathy Was a procedure done? Was a procedure done?: No Differential Diagnosis Multiple Trauma: Other (Head trauma, facial fracture, subarachnoid hemorrhage, subdural hematoma, skull fracture) X-Ray, Labs, Meds, VS Vital Signs Date Time Temp Pulse Resp B/P (MAP) Pulse Ox O2 Delivery O2 Flow Rate FiO2 01/02/25 18:46 98.7 81 18 180/86 (117) 98 98.7 X-Ray, Labs, Meds, VS Comment Maxillofacial CT was unremarkable for any acute fractures of the face. Patient sustained a hematoma and some facial trauma. Advised Tylenol as needed for pain relief. Additionally, advised patient to follow up with dentist for evaluation of any subsequent dental concerns due to the fall. Time of 1ST Reevaluation: 20:05 Reevaluation 1ST: Improved Consultation: PCP, Other (Dentist) Patient Education/Counseling: Diagnosis, Treatment Family Education/Counseling: Diagnosis, Treatment, No Family Present Departure 1 Departure Time of Disposition: 20:06 Impression: Primary Impression: Fall Additional Impressions: Facial trauma Facial hematoma Disposition: HOME / SELF CARE / HOMELESS Condition: Stable Additional Instructions: Advised Tylenol as needed for pain relief in additionally, patient should follow up with dentist in the next few days for re-evaluation of any subsequent dental concerns. e-Prescriptions Acetaminophen (Tylenol) 325 Mg Cap 325 MG PO Q4HP PRN, #30 CAP Prov: ZAHRA HERNANDEZ Michelle PAC 01/02/25 Discharged With: Self, Friend Critical Care Note Critical Care Time?: No Stability Stability form required: No Heart Score Heart Score: Heart Score Response (Comments) Value History N/A 0 EKG N/A 0 Age N/A 0 Risk Factors N/A 0 Troponin N/A 0 Total 0 I personally scribed for ZAHRA HERNANDEZ PAC ([email or web address]) on 01/02/25 at 19:47. Electronically submitted by Wander Lynn ([email or web address]). ZAHRA HERNANDEZ PAC Jan 02, 2025 19:47
[2025-01-02] MEDS ORDERED: ACET1CAP14 PO (20:07)
[2025-01-02 20:12] VITALS: BP 182/82; PULSE 68; RESP 16; TEMP 97.8; O2SAT 98
== END 2025-01-02 20:16 | disposition home or self-care (01) ==
LOC: ER 18:32
DX: S00.83XA Contusion of other part of head, initial encounter (principal); I10 Essential (primary) hypertension; Z98.51 Tubal ligation status; Z79.899 Other long term (current) drug therapy; W01.0XXA Fall on same level from slipping, tripping and stumbling without subsequent striking against object, initial encounter; Y93.89 Activity, other specified; Y92.89 Other specified places as the place of occurrence of the external cause; Y99.8 Other external cause status
CPT/HCPCS: 70486